=== PATIENT | male | born 1970 | race Caucasian/White ===

== ENCOUNTER 2020-01-19 12:37 | Emergency (ER) | payer OTHER, SELFPAY ==
--- NOTE | ~2020-01-19 | XR_ITS ---
EXAMINATION: XR chest 2V DATE: 01/19/2020 13:44 INDICATION: Cough and fever TECHNIQUE: Frontal and lateral views of the chest are obtained COMPARISON: None available FINDINGS: Minimal airspace opacity is present in the right lower lobe. There is no pleural effusion o r pneumothorax. The cardiomediastinal silhouette is normal. There is moderate thoracic spondylosis. IMPRESSION: 1. Right lower lobe airspace opacity, likely pneumonia. Consider followup radiographs in 10-14 days a fter appropriate therapy to evaluate for improvement/resolution. Reviewed, dictated and finalized at location A. [facility] MAINTENANCE MANAGER IMPRESSION: 1. Right lower lobe airspace opacity, likely pneumonia. Consider followup radio graphs in 10-14 days after appropriate therapy to evaluate for improvement/reso lution.
[2020-01-19 12:48] VITALS: BP 142/78; PULSE 81; RESP 16; TEMP 36.4; O2SAT 99
--- NOTE | 2020-01-19 13:19 | ED.GENADULT ---
HPI - General Adult General Chief complaint: Upper Respiratory Infection Stated complaint: cough nausea fever Time Seen by Provider: 01/19/20 13:25 Source: patient Mode of arrival: ambulatory Limitations: no limitations History of Present Illness HPI narrative: 49-year-old male patient presents to the [facility] with complaints of cold symptoms. Patient states that symptoms started approximately 3 days ago. Patient denies getting a flu shot this year. Patient denies any medical history but states he has had a hernia surgery before in the past. Patient states that he was a previous smoker but quit about a year ago. Patient states that he has had a cough that is worse when he lays down at night and is causing chest pain or shortness of breath. Patient states he is also had some chills and just overall feeling feverish. Patient states a little bit of a runny nose denies sore throat. Denies abdominal pain, nausea, vomiting or diarrhea. Related Data Allergies Allergy/AdvReac Type Severity Reaction Status Date / Time No Known Allergies Allergy Verified 01/19/20 13:05 Review of Systems Review of Systems: Narrative: CONSTITUTIONAL: Positive subjective fever, body aches, chills, and sweats. EYES: Denies visual changes, redness, or discharge. ENT: Positive clear rhinorrhea, congestion, denies sore throat, or otalgia. CARDIOVASCULAR: Positive chest pain, denies palpitations, or edema. RESPIRATORY: Positive cough with dyspnea. GASTROINTESTINAL: Denies abdominal pain, nausea, vomiting, or diarrhea. GENITOURINARY: Denies dysuria or hematuria. SKIN: Denies rash or itching. MUSCULOSKELETAL: Denies back pain, joint pain, or myalgia. NEUROLOGIC: Denies headache, numbness, or weakness. PSYCHIATRIC: Denies anxiety or depression. PMFSH Comments At the time of my signature I agree with nursing past medical history, surgical, social, and family history. There is no relevant family history pertinent to the presenting complaint. Exam Narrative: Exam Narrative: GENERAL: ill-appearing, well-nourished, and in no acute distress. HEAD: Normocephalic, atraumatic. No tenderness noted to frontal or maxillary sinuses on palpation. EYES: PERRLA and EOMI. ENT: Nares with erythema edema noted bilaterally, no rhinorrhea or epistaxis. Mucous membranes moist. Posterior pharynx with some erythema but no tonsil enlargement no exudates or lesions present. NECK: Supple. No lymphadenopathy CHEST: Patient slightly decreased to bilateral lower lobes on auscultation. No respiratory distress. Patient able to talk in clear complete sentences. Cough is present during exam. HEART: Regular rate and rhythm. No murmur heard. Normal peripheral pulses. ABDOMEN: Soft, nontender, nondistended, normal active bowel sounds. EXTREMITIES: Normal range of motion. No edema. SKIN: Warm, dry, no rash. NEURO: No focal deficits. Alert and oriented x3. Course Reevaluation(s) Reevaluation #1: Reevaluated patient after his DuoNeb was completed. Patient states that he feels about the same after receiving the DuoNeb. Patient's lung sounds are improved as before but still little decreased in the lower lobes. Discussed with patient I am to discharge him home with an albuterol inhaler to help with any chest pain, shortness of breath and coughing as well as some Tessalon Perles for the cough and an antibiotic for the pneumonia. Discussed with him that the x-ray does show some pneumonia. Discussed with patient I would like him to follow-up with his primary doctor for follow-up in regards to his EKG as well as a repeat chest x-ray in a couple of weeks to ensure that the pneumonia has resolved. Patient verbalized understanding. A copy of the EKG and chest x-ray results were provided to the patient today. Date: 01/19/20 Time: 14:44 Vital Signs Vital signs: Vital Signs Temperature 36.4 C 01/19/20 12:48 Pulse Rate 81 01/19/20 12:48 Respiratory Rate 16 01/19/20 12:48 Blood Pressure 142/78 H
--- NOTE | 2020-01-19 13:38 | ECG_ITS ---
Measurements Intervals [place] Rate: 68 P: 45 ND: 174 QRS: -40 QRSD: 103 T: 47 QT: 385 QTc: 410 Interpretive Statements SINUS RHYTHM LEFT AXIS DEVIATION BASELINE ARTIFACT- I, III, AVR, AVL BORDERLINE ECG Electronically Signed On 01-20-2020 12:37:15 PODIATRIST ASSISTANT by Ritchie Black D.O.
[2020-01-19] MEDS: ALBUTEROL SULFATE NEB 2.5 MG/3 ML INH INHALATION (13:46)
[2020-01-19] MEDS: IPRATROPIUM BR 0.02% INH SOLN 0.5 MG/2.5 ML VIAL INHALATION (13:46)
== END 2020-01-19 14:19 | disposition home or self-care (01) ==
PROVIDERS: Emergency Provider Nurse Practitioner Family
DX: J18.9 Pneumonia, unspecified organism (principal); Z87.891 Personal history of nicotine dependence
CPT/HCPCS: 71046; 87804; 93005; 94640; 99213; G0463